=== PATIENT | male | born 1940 | race Caucasian/White ===

== ENCOUNTER 2020-03-15 20:05 | Emergency (ER) | payer OTHER ==
[~2020-03-15] VITALS: Ht 170.2 cm; Wt 84.4 kg
[~2020-03-15 20:05] MED LIST: ASCO500 PO; ASPI325; ASPI325EC PO; CALCIUM PO; GLIM2 PO; LISI20 PO; METF500 PO; MULVITA; OXYC5 PO; Omeprazole20 M1 PO; PAIN RELIEVER500 MG PO; VITAMINES
[2020-03-15 20:31] LABS: BASOPHILS PERCENT AUTO 1 % (0-2); EOSINOPHILS ABSOLUTE AUTO 0.35 K/mm3 (0.00-0.68); EOSINOPHILS PERCENT AUTO 4 % (0-6); Hematocrit 47.9 % (37.0-53.0); Hemoglobin 16.2 g/dL (13.5-17.5); IMMATURE GRAN ABSOLUTE AUTO 0.16 K/mm3 (0.00-0.10); IMMATURE GRAN PERCENT AUTO 2 % (0-1); LYMPHOCYTES PERCENT AUTO 22 % (21-46); MONOCYTES ABSOLUTE AUTO 0.52 K/mm3 (0.16-1.47); MONOCYTES PERCENT AUTO 5 % (4-13); Mean Corpuscular HGB 29.7 pg (26.0-34.0); Mean Corpuscular HGB Conc 33.8 g/dL (31.5-36.5); Mean Corpuscular Volume 88 fL (80-100); Mean Platelet Volume 9.6 fL (9.1-12.4); NEUTROPHILS ABSOLUTE AUTO 6.52 K/mm3 (1.96-9.15); NEUTROPHILS PERCENT AUTO 66 % (41-73); Platelet Count 296 K/mm3 (150-400); RDW Coefficient Variation 13.5 % (11.7-14.2); RDW Standard Deviation 43.6 fL (35.1-46.3); Red Blood Cell Count 5.45 M/mm3 (4.30-5.90); White Blood Cell Count 9.85 K/mm3 (4.00-11.30)
[2020-03-15 20:44] LABS: International Normalized Ratio 0.96; Prothrombin Time Results 10.3 Sec (9.7-11.5)
[2020-03-15 21:11] LABS: Alanine Aminotransfer (ALT/SGP 28 U/L (12-78); Albumin, Blood 3.6 g/dL (3.4-5.0); Albumin/Globulin Ratio 1.1 (0.8-1.8); Alk Phos 77 U/L (50-136); Anion Gap 8 mmol/L (6-16); Aspartate Aminotrans (AST/SGOT 19 U/L (12-37); Bilirubin, Total 0.5 mg/dL (0.1-1.0); Blood Urea Nitrogen 18 mg/dL (8-24); Bun/Creatinine Ratio 19.5 (12.0-20.0); CO2, Blood 25 mmol/L (21-32); Calcium, Blood 8.4 mg/dL (8.5-10.1); Chloride, Blood 108 mmol/L (98-108); Creatinine, Blood 0.92 mg/dL (0.60-1.20); Ethanol (Alcohol), Blood, Med <3 mg/dL; Globulin, Blood 3.4 g/dL (2.2-4.0); Glomerular Filtration Rate >60 (60-); Glucose, Blood 294 mg/dL (70-99); Sodium, Blood 141 mmol/L (136-145)
[2020-03-15 21:47] LABS: Source, Urine Clean Catch
[2020-03-15 21:55] LABS: Bilirubin, Urine Neg (Neg); Blood, Urine 1+ (Neg); Glucose Qualitative, Urine 4+ (Neg); Ketones, Urine 1+ (Neg); Leukocyte Esterase, Urine Neg (Neg); Nitrite, Urine Neg (Neg); Protein, Urine 1+ (Neg); Urobilinogen, Urine NORM (Normal)
[2020-03-15 21:58] LABS: Appearance, Urine Clear (Clear); Color, Urine Yellow (P-Yellow)
[2020-03-15 22:00] LABS: Bacteria Few /hpf; Red Blood Cells, Urine 0-2 /hpf (0-2); Squamous Epithelial Cells Not Seen /hpf (Few)
== END 2020-03-15 23:46 | disposition short-term general hospital (02) ==
LOC: ER 20:05
PROVIDERS: Physician Assistant
DX: I60.9 Nontraumatic subarachnoid hemorrhage, unspecified (principal); Z79.899 Other long term (current) drug therapy; Z79.82 Long term (current) use of aspirin; Z20.828 Contact with and (suspected) exposure to other viral communicable diseases
CPT/HCPCS: 36415; 70450; 80053; 81001; 82947; 85025; 85610; 93005; 93010; 99285-25; G0480; U0002

== ENCOUNTER 2022-10-28 18:58 | Emergency (ER) | payer OTHER ==
[~2022-10-28] VITALS: Ht 172.7 cm; Wt 77.1 kg
[2022-10-28 19:30] LABS: BASOPHILS ABSOLUTE AUTO 0.08 K/mm3 (0.00-0.23); BASOPHILS PERCENT AUTO 1 % (0-2); EOSINOPHILS ABSOLUTE AUTO 0.24 K/mm3 (0.00-0.68); EOSINOPHILS PERCENT AUTO 2 % (0-6); Hematocrit 29.5 % (37.0-53.0); Hemoglobin 9.3 g/dL (13.5-17.5); IMMATURE GRAN PERCENT AUTO 1 % (0-1); LYMPHOCYTES ABSOLUTE AUTO 2.36 K/mm3 (0.84-5.20); LYMPHOCYTES PERCENT AUTO 16 % (21-46); MONOCYTES ABSOLUTE AUTO 1.05 K/mm3 (0.16-1.47); MONOCYTES PERCENT AUTO 7 % (4-13); Mean Corpuscular HGB 23.7 pg (26.0-34.0); Mean Corpuscular HGB Conc 31.5 g/dL (31.5-36.5); Mean Corpuscular Volume 75 fL (80-100); Mean Platelet Volume 9.4 fL (9.1-12.4); NEUTROPHILS ABSOLUTE AUTO 10.58 K/mm3 (1.96-9.15); NEUTROPHILS PERCENT AUTO 73 % (41-73); Platelet Count 422 K/mm3 (150-400); RDW Coefficient Variation 13.8 % (11.7-14.2); RDW Standard Deviation 37.2 fL (35.1-46.3); Red Blood Cell Count 3.92 M/mm3 (4.30-5.90); White Blood Cell Count 14.41 K/mm3 (4.00-11.30)
[2022-10-28 19:53] LABS: Magnesium, Blood 1.7 mg/dL (1.6-2.4)
[2022-10-28 19:54] LABS: Albumin, Blood 3.5 g/dL (3.4-5.0); Albumin/Globulin Ratio 1.1 (0.8-1.8); Bilirubin, Total 0.3 mg/dL (0.1-1.0); Bun/Creatinine Ratio 23.5 (12.0-20.0); Calcium, Blood 8.6 mg/dL (8.5-10.1); Creatinine, Blood 0.81 mg/dL (0.60-1.20); Globulin, Blood 3.1 g/dL (2.2-4.0); Total Protein, Blood 6.6 g/dL (6.4-8.2)
[2022-10-28] MEDS ORDERED: LISI5 PO (20:22)
[2022-10-28] MEDS ORDERED: CEPH500 PO (23:58)
== END 2022-10-29 00:52 | disposition home or self-care (01) ==
LOC: ER 18:58
PROVIDERS: Student in an Organized Health Care Education/Training Program
DX: S68.613A Complete traumatic transphalangeal amputation of left middle finger, initial encounter (principal); S61.215A Laceration without foreign body of left ring finger without damage to nail, initial encounter; S61.411A Laceration without foreign body of right hand, initial encounter; W31.2XXA Contact with powered woodworking and forming machines, initial encounter; Z79.899 Other long term (current) drug therapy; Z79.82 Long term (current) use of aspirin
CPT/HCPCS: 12042; 70450; 72125; 73120; 73130; 80053; 83735; 84484; 85025; 93005; 93010; 96374-59; 96375-59; 99285-25; A9270; J0690; J1885

== ENCOUNTER 2022-11-24 16:29 | Observation (INO) | payer OTHER ==
[~2022-11-24] VITALS: Ht 172.7 cm; Wt 75.4 kg
[~2022-11-24 16:29] MED LIST changes: +CEPH500 PO; +LISI5 PO
[2022-11-24 17:11] LABS: BASOPHILS ABSOLUTE AUTO 0.06 K/mm3 (0.00-0.23); BASOPHILS PERCENT AUTO 1 % (0-2); EOSINOPHILS ABSOLUTE AUTO 0.15 K/mm3 (0.00-0.68); EOSINOPHILS PERCENT AUTO 2 % (0-6); Hematocrit 20.8 % (37.0-53.0); Hemoglobin 6.2 g/dL (13.5-17.5); IMMATURE GRAN ABSOLUTE AUTO 0.09 K/mm3 (0.00-0.10); IMMATURE GRAN PERCENT AUTO 1 % (0-1); LYMPHOCYTES ABSOLUTE AUTO 1.74 K/mm3 (0.84-5.20); LYMPHOCYTES PERCENT AUTO 18 % (21-46); MONOCYTES ABSOLUTE AUTO 0.86 K/mm3 (0.16-1.47); MONOCYTES PERCENT AUTO 9 % (4-13); Mean Corpuscular HGB Conc 29.8 g/dL (31.5-36.5); Mean Corpuscular Volume 77 fL (80-100); Mean Platelet Volume 9.8 fL (9.1-12.4); NEUTROPHILS ABSOLUTE AUTO 6.72 K/mm3 (1.96-9.15); NEUTROPHILS PERCENT AUTO 70 % (41-73); Platelet Count 460 K/mm3 (150-400); RDW Coefficient Variation 16.3 % (11.7-14.2); RDW Standard Deviation 45.2 fL (35.1-46.3); Red Blood Cell Count 2.69 M/mm3 (4.30-5.90); White Blood Cell Count 9.62 K/mm3 (4.00-11.30)
[2022-11-24 17:26] LABS: Albumin, Blood 3.1 g/dL (3.4-5.0); Bilirubin, Total 0.2 mg/dL (0.1-1.0); Bun/Creatinine Ratio 20.1 (12.0-20.0); Calcium, Blood 8.5 mg/dL (8.5-10.1); Creatinine, Blood 0.75 mg/dL (0.60-1.20); Potassium, Blood 4.3 mmol/L (3.5-5.5); Total Protein, Blood 6.1 g/dL (6.4-8.2)
[2022-11-24 21:00] VITALS: BP 117/59
[2022-11-24 21:30] VITALS: BP 112/60
[2022-11-24 22:00] VITALS: BP 107/77
[2022-11-24 22:30] VITALS: BP 126/70
[2022-11-24 23:00] VITALS: BP 97/81
[2022-11-25] VITALS (39 sets, daily range): BP systolic 104–165; BP diastolic 53–88
[2022-11-25 01:30] LABS: BASOPHILS ABSOLUTE AUTO 0.06 K/mm3 (0.00-0.23); BASOPHILS PERCENT AUTO 1 % (0-2); EOSINOPHILS ABSOLUTE AUTO 0.19 K/mm3 (0.00-0.68); EOSINOPHILS PERCENT AUTO 2 % (0-6); Hemoglobin 7.7 g/dL (13.5-17.5); IMMATURE GRAN ABSOLUTE AUTO 0.13 K/mm3 (0.00-0.10); IMMATURE GRAN PERCENT AUTO 1 % (0-1); LYMPHOCYTES ABSOLUTE AUTO 1.42 K/mm3 (0.84-5.20); LYMPHOCYTES PERCENT AUTO 14 % (21-46); MONOCYTES ABSOLUTE AUTO 0.76 K/mm3 (0.16-1.47); MONOCYTES PERCENT AUTO 8 % (4-13); Mean Corpuscular HGB 24.4 pg (26.0-34.0); Mean Corpuscular HGB Conc 30.8 g/dL (31.5-36.5); Mean Corpuscular Volume 79 fL (80-100); Mean Platelet Volume 9.5 fL (9.1-12.4); NEUTROPHILS PERCENT AUTO 74 % (41-73); Platelet Count 391 K/mm3 (150-400); RDW Coefficient Variation 16.6 % (11.7-14.2); RDW Standard Deviation 47.1 fL (35.1-46.3); Red Blood Cell Count 3.15 M/mm3 (4.30-5.90); White Blood Cell Count 9.96 K/mm3 (4.00-11.30)
[2022-11-25 01:51] LABS: Bun/Creatinine Ratio 18.4 (12.0-20.0); Creatinine, Blood 0.81 mg/dL (0.60-1.20); Potassium, Blood 4.3 mmol/L (3.5-5.5)
--- NOTE | 2022-11-25 02:48 | NUR ---
ARRIVAL TO ICU PT ARRIVED TO ICU 16 AT 2235 VIA ED BED AND WAS ABLE TO TRANSFER SELF TO ICU BED WITH MINIMAL ASSISTANCE, MOSTLY JUST CORD MANAGMENT. HE IS A/O X4 AND ABLE TO MAKE HIS NEEDS KNOWN. HE ARRIVED WITH SECOND UNIT OF PRBC INFUSING AT 150ML/HR, INFUSION COMPLETED AT 0015, REPEAT H&H SHOWED IMPROVEMENT AT 7.7/25.0. SPO2 >98% ON RA; WHILE SLEEPING CPAP BEING USED, AUTO SETTINGS, NO O2 BLEED IN. AFEBRILE. HR 70-80'S; WITH EXERTION, HR INCREASED TO 110. BP STABLE; NO C/O BEING DIZZY OR LIGHTHEADED WHEN TRANSFERING. HAS BEEN NPO SINCE 0000. USES URINAL STANDING AT BEDSIDE. NS INFUSING AT 100ML/HR. SEE ADMISSION ASSESSMENT FOR FULL ASSESSMENT.
--- NOTE | 2022-11-25 06:00 | NUR ---
END OF SHIFT SUMMARY NO ACUTE EVENTS SINCE ARRIVAL TO ICU. ONCE PLACED ON CPAP PT WAS ABLE TO SLEEP FOR ABOUT 5 HOURS AND IS NOW AWAKE STATING THAT HE FEELS "VERY GOOD". HE CONT TO BE A/O X4, VERY PLESENT. ON RA WHILE AWAKE; TOLERATED CPAP WHILE SLEEPING. HR 60-70'S; SBP 110-120. HE HAS BEEN NPO SINCE 0000. HE USES URINAL AT BEDSIDE; STAND BY ASSIST FOR LINE MANAGEMENT. NS INFUSING AT 100ML/HR. WILL REPORT TO AM RN WHEN AVAILABLE.
--- NOTE | 2022-11-25 07:30 | NUR ---
ASSUMED CARE OF PATIENT.
[2022-11-25] MEDS ORDERED: FEROSUL325 M1 PO (09:01)
--- NOTE | 2022-11-25 10:54 | NUR ---
Spiritual Care Visit. Pt. is awake and welcomes my visit. 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 Pt. displays evidence of awareness and engagement. Matters of lino and belief are considered during a life review. Prayed with Pt. and Pt. verbalized gratitude for the spiritual care visit. 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
[2022-11-25 12:17] LABS: Percent Saturation 4.2 % (20.0-50.0)
--- NOTE | 2022-11-25 14:48 | NUR ---
Pt resting in bed upon arrival. Pt is A&OX4 and denies pain at this time. Pt's spouse and their carbon cutter at bedside. Offered supportive visit and therapeutic listening. Listened as Pt discusses events leading of to this hospital stay. Listened as Pt and spouse discusses the possibility of mass found being cancer and how they have known several people who have from cancer. Pt and spouse talk about it open and freely. Conversation does not appear to cause any anxiety. Continued therpaeutic listening. Pt scheduled for prcedure this afternoon. Ended visit to allow Pt to rest. Palliative Care will F/U after procedure to discuss code status.
--- NOTE | 2022-11-25 15:33 | NUR ---
PT TO DAY SURGERY FOR EGD
--- NOTE | 2022-11-25 15:52 | NUR ---
PRE-PROCEDURAL NOTE PT A&OX4, BREATHING RA, VSS, AT BEDSIDE. IV TO T AC PATENT AND RUNNING AT TKO. Patient confirms NPO status and agrees with scheduled PROCEDURE. Pre-Op teaching done. Pt verbalizes understanding.
--- NOTE | 2022-11-25 16:00 | NUR ---
11/25/22 1600 Faustina Aguirre History, Chart, Medications and Allergies reviewed before start of procedure. PATIENT CONFIRMS NPO STATUS AND AGREES WITH SCHEDULED PROCEDURE. 3-LEAD EKG REVIEWED WITH PHYSICIAN PRIOR TO START OF PROCEDURE. MONITOR INTACT WITH CONTINUOUS PULSE OXIMETRY, CONTINUOUS END TITAL CO2, AND INTERMITTENT BLOOD PRESSURE. O2 VIA N/C INTACT THROUGHOUT SEDATION/PROCEDURE. PATIENT DETERMINED TO BE ASA APPROPRIATE FOR PROPOFOL SEDATION PRIOR TO START OF PROCEDURE BY .
--- NOTE | 2022-11-25 16:30 | NUR ---
END OF SHIFT/ TRANSFER SUMMARY: NEURO: PATIENT IS A&OX4 AND TILLMAN. RESP: PATIENTS LUNG SOUNDS WERE CLEAR IN ALL QUADRANTS UPON AUSCULATION. CARDIO: GALLOP AUSCULTATED. GI: PATIENT REMAINED NPO DURING WHOLE SHIFT IN PREPERATION FOR SCOPE. SKIN: PATIENT HAS A ABRASION TO HIS THIRD AND FOURTH FINGER ON HIS LEFT HAND. IV'S: 20G IV IN LEFT AND RIGHT AC. BOTH LINES FULSHING AND PATENT SHIFT [place]: PATIENT WENT TO DAY SURGERY FOR A EGD. PATIENT WAS THEN TRANSFERED TO MEDICAL FLOOR AFTER.
--- NOTE | 2022-11-25 19:45 | NUR ---
I HAVE REVIEWED AND AGREE WITH COMPLIANCE DIRECTOR DOCUMENTATION 11/25/2022
--- NOTE | 2022-11-25 21:50 | NUR ---
CALLED REGARDING PTS ST DEPRESSION INCREASING WELL EKG CHANGES COMPARED TO YESTERDAYS EKG. PT DENIES ANY CHEST PAIN/SOB. PER CONTINUE TO MONITOR PT. NO NEW ORDERS AT THIS TIME.
[2022-11-26 03:55] VITALS: BP 127/75
--- NOTE | 2022-11-26 04:09 | NUR ---
SHIFT SUMMARY; PT HAS BEEN SLEEPING IN BED FOR THE MAJORITY OF THE NIGHT. THE PT IS AXO X4 AND INDEPENDENT IN THE ROOM. THE PT HAS HIS HOME CPAP ON. TELE IS IN PLACE, NSR IN THE 60/70'S WITH ST DEPRESSION. EKG DONE, AWARE OF EKG FINDINGS AND CHANGES IN COMPARISON TO PREVIOUS EKG. THE PT DENIES ANY PAIN CHEST PAIN/PRESSURE, SOB OR N/V. CURRENTLY THE PT IS SLEEPING IN BED WITH THE BED IN THE LOWEST POSITION AND THE CALL LIGHT AT BEDSIDE.
[2022-11-26 05:53] LABS: Hematocrit 27.6 % (37.0-53.0); Hemoglobin 8.5 g/dL (13.5-17.5); Mean Corpuscular HGB 24.4 pg (26.0-34.0); Mean Corpuscular HGB Conc 30.8 g/dL (31.5-36.5); Mean Corpuscular Volume 79 fL (80-100); Mean Platelet Volume 9.8 fL (9.1-12.4); Platelet Count 416 K/mm3 (150-400); RDW Coefficient Variation 17.1 % (11.7-14.2); RDW Standard Deviation 47.9 fL (35.1-46.3); Red Blood Cell Count 3.48 M/mm3 (4.30-5.90); White Blood Cell Count 10.95 K/mm3 (4.00-11.30)
[2022-11-26 06:24] LABS: Albumin, Blood 2.8 g/dL (3.4-5.0); Bilirubin, Total 0.4 mg/dL (0.1-1.0); Bun/Creatinine Ratio 15.8 (12.0-20.0); Calcium, Blood 8.2 mg/dL (8.5-10.1); Creatinine, Blood 0.76 mg/dL (0.60-1.20); Globulin, Blood 2.8 g/dL (2.2-4.0); Potassium, Blood 4.1 mmol/L (3.5-5.5); Total Protein, Blood 5.6 g/dL (6.4-8.2)
[2022-11-26 07:17] VITALS: BP 115/66
[2022-11-26] MEDS ORDERED: PANT40 PO (12:35)
--- NOTE | 2022-11-26 13:46 | NUR ---
DISCHARGE SUMMARY PATIENT IS ALERT AND ORIENTED. PATIENT HAS HAD NO ACUTE EVENTS THIS SHIFT. IRON INFUSED THIS SHIFT. PATIENT HAS NOT COMPLAINED OF PAIN, NAUSEA, SOB OR VOMITTING THIS SHIFT. VITAL SIGNS REVIEWED. PATIENT IS BEING DISCHARGED HOME WITH DRIVING PATIENT HOME.
[2022-11-30 12:36] LABS: Performing Lab SYMBIODX; Test Name HER2 FISH
== END 2022-11-26 13:26 | disposition home or self-care (01) ==
LOC: ER 16:29 → ICUW 16:30 → MEDS 11-25 16:54
PROVIDERS: Internal Medicine; Pathology Clinical Pathology/Laboratory Medicine; Student in an Organized Health Care Education/Training Program; ADMIT Student in an Organized Health Care Education/Training Program
DX: C15.5 Malignant neoplasm of lower third of esophagus (principal); K31.89 Other diseases of stomach and duodenum; D50.9 Iron deficiency anemia, unspecified; K92.2 Gastrointestinal hemorrhage, unspecified; K21.9 Gastro-esophageal reflux disease without esophagitis; I10 Essential (primary) hypertension; E11.9 Type 2 diabetes mellitus without complications; Z79.84 Long term (current) use of oral hypoglycemic drugs; Z79.899 Other long term (current) drug therapy
CPT/HCPCS: 36415; 36430; 74177; 80048; 80053; 82272; 82728; 82947; 83540; 83550; 85025; 85027; 86850; 86900; 86901; 86923; 88305; 88360; 88374; 93005; 93010; 94660; 94762; 96361; 96365; 96375; 96376; 99285-25; A9270; C9113; G0378; J2704; J2916; J7030; J7120; P9016; Q9967

== ENCOUNTER 2024-01-13 13:26 | Emergency (ER) | payer OTHER ==
[~2024-01-13] VITALS: Ht 172.7 cm; Wt 64.4 kg
[~2024-01-13 13:26] MED LIST changes: +FEROSUL325 M1 PO; +OMEP20ER; +PANT40 PO
[2024-01-13 13:37] VITALS: BP 116/93
[2024-01-13] MEDS ORDERED: Trimethoprim/Sulfamethoxazole DS Tab PO ONE (16:35)
[2024-01-13] MEDS ORDERED: BACTRIM DS TAB1 EAC1 PO ×2 (17:22→17:56)
== END 2024-01-13 18:01 | disposition home or self-care (01) ==
LOC: ER 13:26
DX: K94.23 Gastrostomy malfunction (principal); K21.9 Gastro-esophageal reflux disease without esophagitis; I10 Essential (primary) hypertension; E11.9 Type 2 diabetes mellitus without complications; Z79.899 Other long term (current) drug therapy
CPT/HCPCS: 43762; 49465; 99282-25; A9270; Q9963

== ENCOUNTER 2024-02-02 08:04 | Day surgery (SDC) | payer OTHER ==
[~2024-02-02] VITALS: Ht 172.7 cm; Wt 63.1 kg
[~2024-02-02 08:04] MED LIST changes: +BACTRIM DS TAB1 EAC1 PO; +Lactated Ringer's 1,000 ML IV SCH
[2024-02-02] MEDS ORDERED: Vitamin C100 M1 PO (08:28)
[2024-02-02] MEDS ORDERED: Cardura1 MG PO (08:29)
[2024-02-02] MEDS ORDERED: Vitamin B-12100 MCG PO (08:29)
[2024-02-02 08:38] VITALS: BP 112/87
[2024-02-02] MEDS ORDERED: propofoL 40 ML IV ONE (09:07)
--- NOTE | 2024-02-02 09:15 | NUR ---
02/02/24 0915 Cheryl Irwin History, Chart, Medications and Allergies reviewed before start of procedure.MONITOR INTACT WITH CONTINUOUS PULSE OXIMETRY, CONTINUOUS END TITAL CO2, AND INTERMITTENT BLOOD PRESSURE.3-LEAD EKG REVIEWED WITH PHYSICIAN PRIOR TO START OF PROCEDURE.O2 VIA POM INTACT THROUGHOUT SEDATION/PROCEDURE.Bite Block Placed. Uwi, PARTS COUNTER CLERK providing MAC-see anesthesia record.
[2024-02-02 09:37] VITALS: BP 107/67
[2024-02-02 09:55] VITALS: BP 103/78
--- NOTE | 2024-02-02 10:10 | NUR ---
Discharge instructions reviewed with patient. Patient verbalizes understanding. Copy given to patient to take home. Patient States Post-Procedure ride home has been arranged. Discharged via wheelchair to private car for ride home.
== END 2024-02-02 10:07 | disposition home or self-care (01) ==
LOC: ORSCMMR 08:04 → ORD 08:04 → ORSCMMR 08:07 → ORD 09:15
PROVIDERS: Internal Medicine Gastroenterology
PROC: 0DJ08ZZ Inspection of Upper Intestinal Tract, Via Natural or Artificial Opening Endoscopic (ICD-10-PCS; principal; 2024-02-02 09:15)
DX: R13.12 Dysphagia, oropharyngeal phase (principal); Z85.01 Personal history of malignant neoplasm of esophagus; K22.2 Esophageal obstruction; Z93.1 Gastrostomy status; G47.30 Sleep apnea, unspecified; E78.5 Hyperlipidemia, unspecified; I10 Essential (primary) hypertension; E11.9 Type 2 diabetes mellitus without complications; G47.33 Obstructive sleep apnea (adult) (pediatric); Z79.899 Other long term (current) drug therapy
CPT/HCPCS: 82947; C1726; J2704

== ENCOUNTER 2024-02-23 10:43 | Day surgery (SDC) | payer OTHER ==
[~2024-02-23] VITALS: Ht 170.2 cm; Wt 64.9 kg
[~2024-02-23 10:43] MED LIST changes: +Cardura1 MG PO; +Lactated Ringer's 1,000 ML IV ONE; -Lactated Ringer's 1,000 ML IV SCH; +Vitamin B-12100 MCG PO; +Vitamin C100 M1 PO
[2024-02-23] MEDS ORDERED: Lactated Ringer's 1,000 ML IV ONE (12:10)
[2024-02-23] MEDS ORDERED: propofoL 50 ML IV ONE (13:10)
[2024-02-23 14:49] VITALS: BP 112/68
--- NOTE | 2024-02-23 14:58 | NUR ---
02/23/24 1458 Chantal Manning 1335: PER DR ROCHE, ONCE PATIENT IS ALERT DO A SWALLOWING TRIAL OF LUKEWARM WATER. 1338: PATIENT'S MOUTH SUCTIONED WHEN FIRST IN RECOVERY USING YANKEUR. OUTPUT IS CLEAR AND THIN. 1350: PATIENT TITRATED TO ROOM AIR, SITTING UPRIGHT IN BED, LUNGS ARE CLEAR, TALKING WITH SPOUSE AND STAFF. 1355: PATIENT COMPLETED TRIAL OF SIPS OF LUKEWARM WATER WITH A STRAW, ACCORDING TO PATIENT HIS SWALLOWING "FEELS BETTER". RN INSTRUCTED PATIENT TO GO SLOW AND TAKE SMALL SIPS. PATIENT ABLE TO COMPLETE MULTIPLE SMALL SIPS OF WATER AND THEN STATED HE WAS DONE. HE DID CONTINUE TO SPIT OUT HIS SPIT LIKE HE HAD BEFORE PROCEDURE. 1407: DR ROCHE NOTIFIED THAT PATIENT COMPLETED SWALLOWING TRIAL OF LUKEWARM WATER WITHOUT ISSUE. DR ROCHE IN TO DISCUSS CASE WITH PATIENT. PER DR ROCHE, NO FURTHER ORDERS, PATIENT IS OKAY TO DISCHARGE HOME AND TRY A MILKSHAKE.
== END 2024-02-23 14:25 | disposition home or self-care (01) ==
LOC: ORSCSDS 10:43
PROVIDERS: Internal Medicine Gastroenterology
PROC: 0D758ZZ Dilation of Esophagus, Via Natural or Artificial Opening Endoscopic (ICD-10-PCS; principal; 2024-02-23 12:00)
DX: R13.12 Dysphagia, oropharyngeal phase (principal); K22.2 Esophageal obstruction; Z85.01 Personal history of malignant neoplasm of esophagus; G47.33 Obstructive sleep apnea (adult) (pediatric); E11.9 Type 2 diabetes mellitus without complications; I10 Essential (primary) hypertension; Z79.899 Other long term (current) drug therapy
CPT/HCPCS: 82947; C1726; J2704; J7120

== ENCOUNTER 2024-04-19 07:15 | Day surgery (SDC) | payer OTHER ==
[~2024-04-19] VITALS: Ht 165.1 cm; Wt 65.7 kg
[2024-04-19] VITALS (8 sets, daily range): BP systolic 95–126; BP diastolic 64–91
[~2024-04-19 07:15] MED LIST changes: -Lactated Ringer's 1,000 ML IV ONE; +Lactated Ringer's 1,000 ML IV SCH
[2024-04-19] MEDS ORDERED: propofoL 20 ML IV ONE (08:43)
--- NOTE | 2024-04-19 08:45 | NUR ---
04/19/24 0845 Digna Thurman History, Chart, Medications and Allergies reviewed before start of procedure. MONITOR INTACT WITH CONTINUOUS PULSE OXIMETRY, CONTINUOUS END TITAL CO2, AND INTERMITTENT BLOOD PRESSURE. Bite Block Placed. PATIENT DETERMINED TO BE ASA APPROPRIATE FOR PROPOFOL SEDATION PRIOR TO START OF PROCEDURE BY DR. ROCHE.
--- NOTE | 2024-04-19 08:57 | NUR ---
Ambulatory in Day Surgery History, Chart, Medications and Allergies reviewed before start of procedure. Pre-Op teaching done. Pt verbalizes understanding. Patient States Post-Procedure ride home has been arranged.
--- NOTE | 2024-04-19 09:37 | NUR ---
DISCHARGE NOTE Patient up to Ambulate independently. Gait steady. Discharge instructions reviewed with patient. Patient verbalizes understanding. Copy given to patient to take home. Lungs clear T/O to Auscultation. Discharged via wheelchair to private car for ride home. Patient swallowing water w/o difficulty. Reviewed DC instructions w/ spouse as well.
== END 2024-04-19 09:39 | disposition home or self-care (01) ==
LOC: ORSCMMR 07:15 → ORD 08:45 → ORSCMMR 09:39
PROVIDERS: Internal Medicine Gastroenterology
PROC: 0D758ZZ Dilation of Esophagus, Via Natural or Artificial Opening Endoscopic (ICD-10-PCS; principal; 2024-04-19 08:45)
DX: R13.10 Dysphagia, unspecified (principal); Z85.01 Personal history of malignant neoplasm of esophagus; E11.9 Type 2 diabetes mellitus without complications; G47.33 Obstructive sleep apnea (adult) (pediatric); Z79.899 Other long term (current) drug therapy
CPT/HCPCS: 82947; C1726; J2704; J7120

== ENCOUNTER 2024-04-30 07:44 | Day surgery (SDC) | payer OTHER ==
[~2024-04-30] VITALS: Ht 170.2 cm; Wt 65.6 kg
[~2024-04-30 07:44] MED LIST changes: +Lactated Ringer's 1,000 ML IV ONE; -Lactated Ringer's 1,000 ML IV SCH; +propofoL 50 ML IV ONE
[2024-04-30] MEDS ORDERED: Lactated Ringer's 1,000 ML IV ONE (08:10)
--- NOTE | 2024-04-30 08:24 | NUR ---
04/30/24 0824 Jorge L Irwin CALL LIGHT WITHIN REACH. FAMILY AT BEDSIDE.
[2024-04-30 10:09] VITALS: BP 110/63
--- NOTE | 2024-04-30 10:24 | NUR ---
04/30/24 Donna Hayes PT. DENIES ANY TROUBLE SWALLOWING OR SORE THROAT. PT. STATES "I CAN SWALLOW GOOD."
== END 2024-04-30 09:49 | disposition home or self-care (01) ==
LOC: ORSCSDS 07:44
PROVIDERS: Specialist
PROC: 0D758ZZ Dilation of Esophagus, Via Natural or Artificial Opening Endoscopic (ICD-10-PCS; principal; 2024-04-30 09:00)
DX: R13.10 Dysphagia, unspecified (principal); G47.33 Obstructive sleep apnea (adult) (pediatric); Z85.01 Personal history of malignant neoplasm of esophagus; E11.9 Type 2 diabetes mellitus without complications; I10 Essential (primary) hypertension
CPT/HCPCS: 82947; C1726; J2704; J7120

== ENCOUNTER 2024-05-09 07:39 | Day surgery (SDC) | payer OTHER ==
[~2024-05-09] VITALS: Ht 170.2 cm; Wt 65.7 kg
[~2024-05-09 07:39] MED LIST changes: -propofoL 50 ML IV ONE
[2024-05-09] MEDS ORDERED: Vitamin D1000 UNI1 PO (08:13)
[2024-05-09] MEDS ORDERED: Lactated Ringer's 1,000 ML IV ONE (08:42)
[2024-05-09] MEDS ORDERED: Lidocaine HCl 4% 5 ML SDA ONE (08:45)
[2024-05-09] MEDS ORDERED: Glycopyrrolate 0.2 MG/ML 1MLVIAL ONE (08:45)
[2024-05-09] MEDS ORDERED: propofoL 50 ML IV ONE (08:57)
--- NOTE | 2024-05-09 08:59 | NUR ---
05/09/24 0859 Donna Toro PT. DENIES ANY PAIN
[2024-05-09 10:02] VITALS: BP 99/68
== END 2024-05-09 10:05 | disposition home or self-care (01) ==
LOC: ORSCSDS 07:39
PROVIDERS: Specialist
PROC: 0DJ08ZZ Inspection of Upper Intestinal Tract, Via Natural or Artificial Opening Endoscopic (ICD-10-PCS; principal; 2024-05-09 09:00)
DX: Q39.3 Congenital stenosis and stricture of esophagus (principal); Z93.1 Gastrostomy status; G47.33 Obstructive sleep apnea (adult) (pediatric); R63.4 Abnormal weight loss; E11.9 Type 2 diabetes mellitus without complications; Z85.01 Personal history of malignant neoplasm of esophagus; R13.12 Dysphagia, oropharyngeal phase; Z79.899 Other long term (current) drug therapy
CPT/HCPCS: 82947; C1726; J2001; J2003; J2704; J7120

== ENCOUNTER 2024-05-28 11:08 | Day surgery (SDC) | payer OTHER ==
[~2024-05-28] VITALS: Ht 170.2 cm; Wt 65.5 kg
[~2024-05-28 11:08] MED LIST changes: +Vitamin D1000 UNI1 PO
[2024-05-28] MEDS ORDERED: Lactated Ringer's 1,000 ML IV ONE ×2 (12:08→13:12)
[2024-05-28] MEDS ORDERED: propofoL 50 ML IV ONE (12:23)
[2024-05-28] MEDS ORDERED: Glycopyrrolate 0.2 MG/ML 1MLVIAL ONE (12:24)
[2024-05-28 13:16] VITALS: BP 107/72
== END 2024-05-28 13:29 | disposition home or self-care (01) ==
LOC: ORSCSDS 11:08
PROVIDERS: Specialist
PROC: 0D758ZZ Dilation of Esophagus, Via Natural or Artificial Opening Endoscopic (ICD-10-PCS; principal; 2024-05-28 13:00)
DX: Q39.3 Congenital stenosis and stricture of esophagus (principal); Z85.01 Personal history of malignant neoplasm of esophagus; G47.33 Obstructive sleep apnea (adult) (pediatric); E11.9 Type 2 diabetes mellitus without complications; Z79.899 Other long term (current) drug therapy
CPT/HCPCS: 82947; C1726; J2704; J7120

== ENCOUNTER 2024-07-27 16:47 | Emergency (ER) | payer OTHER ==
[~2024-07-27] VITALS: Ht 172.7 cm; Wt 65.8 kg
[~2024-07-27 16:47] MED LIST changes: -Lactated Ringer's 1,000 ML IV ONE
[2024-07-27 17:07] VITALS: BP 126/78
== END 2024-07-27 22:56 | disposition home or self-care (01) ==
LOC: ER 16:47
DX: K94.23 Gastrostomy malfunction (principal); E11.9 Type 2 diabetes mellitus without complications; I10 Essential (primary) hypertension; K21.9 Gastro-esophageal reflux disease without esophagitis; N40.0 Benign prostatic hyperplasia without lower urinary tract symptoms; Z85.01 Personal history of malignant neoplasm of esophagus; Z59.89 Other problems related to housing and economic circumstances; Z79.899 Other long term (current) drug therapy
CPT/HCPCS: 43762; 99282-25

== ENCOUNTER 2025-07-09 00:56 | Inpatient (IN) | payer OTHER, MEDICARE ==
[~2025-07-09] VITALS: Ht 170.2 cm; Wt 62.3 kg
[2025-07-09] MEDS ORDERED: Ipratropium/Albuterol SulF 2.5-0.5MG/3 ML Amp INH ONE (01:00)
[2025-07-09 01:19] LABS: BASOPHILS ABSOLUTE AUTO 0.04 K/mm3 (0.00-0.23); BASOPHILS PERCENT AUTO 1 % (0-2); EOSINOPHILS ABSOLUTE AUTO 0.13 K/mm3 (0.00-0.68); EOSINOPHILS PERCENT AUTO 2 % (0-6); Hematocrit 45.6 % (37.0-53.0); Hemoglobin 15.5 g/dL (13.5-17.5); IMMATURE GRAN ABSOLUTE AUTO 0.08 K/mm3 (0.00-0.10); IMMATURE GRAN PERCENT AUTO 1 % (0-1); LYMPHOCYTES ABSOLUTE AUTO 0.99 K/mm3 (0.84-5.20); LYMPHOCYTES PERCENT AUTO 12 % (21-46); MONOCYTES ABSOLUTE AUTO 0.71 K/mm3 (0.16-1.47); MONOCYTES PERCENT AUTO 9 % (4-13); Mean Corpuscular HGB Conc 34.0 g/dL (31.5-36.5); Mean Corpuscular Volume 86 fL (80-100); NEUTROPHILS ABSOLUTE AUTO 6.21 K/mm3 (1.96-9.15); NEUTROPHILS PERCENT AUTO 76 % (41-73); NRBC ABSOLUTE 0.00 K/mm3 (0.00-0.02); NRBC Auto 0.0 /100 WBC (0.0-0.2); Platelet Count 260 K/mm3 (150-400); RDW Coefficient Variation 14.1 % (11.7-14.2); RDW Standard Deviation 45.0 fL (35.1-46.3)
[2025-07-09 02:00] LABS: Alanine Aminotransfer (ALT/SGP 32.0 U/L (12-78); Albumin, Blood 3.2 g/dL (3.4-5.0); Albumin/Globulin Ratio 0.8 (0.8-1.8); Anion Gap 10.0 mmol/L (3-11); Aspartate Aminotrans (AST/SGOT 24.0 U/L (12-37); Bilirubin, Total 0.8 mg/dL (0.1-1.0); Blood Urea Nitrogen 15.0 mg/dL (8-24); CO2, Blood 26.0 mmol/L (21-32); Calcium, Blood 8.4 mg/dL (8.5-10.1); Chloride, Blood 93.0 mmol/L (98-108); Creatinine, Blood 0.57 mg/dL (0.60-1.20); Globulin, Blood 3.8 g/dL (2.2-4.0); Glucose, Blood 209.0 mg/dL (70-99); Magnesium, Blood 2.0 mg/dL (1.6-2.4); Potassium, Blood 4.0 mmol/L (3.5-5.5); Sodium, Blood 125.0 mmol/L (136-145); Total Protein, Blood 7.0 g/dL (6.4-8.2)
[2025-07-09] MEDS ORDERED: CefTRIAXone Sodium 1,000 MG in NS 100 ML IV ONE ×2 (02:10→05:55)
[2025-07-09] MEDS ORDERED: FLU VACC TS2025(65UP)/MF59C/PF 45 MCG/0.5 ML SYRINGE IM SCH (03:20)
[2025-07-09 05:18] VITALS: BP 110/75
--- NOTE | 2025-07-09 06:56 | NUR ---
SHIFT SUMMARY PT A/O X 4, SPEAKS IN COMPLETE SENTENCES AND IS ABLE TO MAKE NEEDS KNOWN. PT IS HARD OF HEARING. SATS >92% ON 1-2L NC. NSR 70-80s, DENIES CHEST PAIN OR PRESURE. PATIENT HX OF ESOPHAGEAL CANCER, G TUBE PLACED APPROXIMATELY 2 YEARS AGO. MANAGES IT AT HOME WITH HELP OF . PATIENT HAS BLANCHABLE RED SPOT TO COCCYX. BLE DRY, FLAKING SKIN w HX OF PSORIASIS. NO ACUTE EVENTS SINCE ADMITTED. PATIENT RESTING COMFORTABLY IN ROOM. BED LOCKED IN LOWEST POSITION, CALL LIGHT WITHIN REACH.
[2025-07-09 07:33] VITALS: BP 127/71
[2025-07-09] MEDS ORDERED: Enoxaparin 40 MG/0.4 ML SYR SC SCH (09:00)
[2025-07-09] MEDS ORDERED: Lactobacil 2-S.Thermo-Bifido 1 1 Cap PO SCH (09:00)
[2025-07-09 09:23] LABS: BASOPHILS ABSOLUTE AUTO 0.03 K/mm3 (0.00-0.23); BASOPHILS PERCENT AUTO 0 % (0-2); EOSINOPHILS ABSOLUTE AUTO 0.06 K/mm3 (0.00-0.68); EOSINOPHILS PERCENT AUTO 1 % (0-6); Hematocrit 46.2 % (37.0-53.0); Hemoglobin 15.6 g/dL (13.5-17.5); IMMATURE GRAN ABSOLUTE AUTO 0.07 K/mm3 (0.00-0.10); IMMATURE GRAN PERCENT AUTO 1 % (0-1); LYMPHOCYTES ABSOLUTE AUTO 0.47 K/mm3 (0.84-5.20); LYMPHOCYTES PERCENT AUTO 4 % (21-46); MONOCYTES ABSOLUTE AUTO 0.74 K/mm3 (0.16-1.47); MONOCYTES PERCENT AUTO 7 % (4-13); Mean Corpuscular HGB Conc 33.8 g/dL (31.5-36.5); Mean Corpuscular Volume 87 fL (80-100); NEUTROPHILS ABSOLUTE AUTO 9.71 K/mm3 (1.96-9.15); NEUTROPHILS PERCENT AUTO 88 % (41-73); NRBC ABSOLUTE 0.00 K/mm3 (0.00-0.02); NRBC Auto 0.0 /100 WBC (0.0-0.2); Platelet Count 291 K/mm3 (150-400); RDW Coefficient Variation 14.2 % (11.7-14.2); RDW Standard Deviation 45.3 fL (35.1-46.3)
[2025-07-09 09:48] LABS: Alanine Aminotransfer (ALT/SGP 31.0 U/L (12-78); Albumin, Blood 3.1 g/dL (3.4-5.0); Albumin/Globulin Ratio 0.8 (0.8-1.8); Anion Gap 10.0 mmol/L (3-11); Aspartate Aminotrans (AST/SGOT 21.0 U/L (12-37); Bilirubin, Total 0.7 mg/dL (0.1-1.0); Blood Urea Nitrogen 14.0 mg/dL (8-24); CO2, Blood 26.0 mmol/L (21-32); Calcium, Blood 8.4 mg/dL (8.5-10.1); Chloride, Blood 95.0 mmol/L (98-108); Creatinine, Blood 0.52 mg/dL (0.60-1.20); Globulin, Blood 4.1 g/dL (2.2-4.0); Glucose, Blood 141.0 mg/dL (70-99); Magnesium, Blood 2.1 mg/dL (1.6-2.4); Potassium, Blood 4.1 mmol/L (3.5-5.5); Sodium, Blood 127.0 mmol/L (136-145); Total Protein, Blood 7.2 g/dL (6.4-8.2)
[2025-07-09 11:50] VITALS: BP 101/64
[2025-07-09] MEDS ORDERED: Magnesium Hydroxide Conc 10 ML UDC PT PRN (12:00)
[2025-07-09] MEDS ORDERED: Docusate Sodium Liquid 100 MG UDC PT PRN (12:00)
[2025-07-09 15:27] VITALS: BP 110/75
[2025-07-09 16:16] LABS: Influenza A, PCR NEGATIVE (NEGATIVE); Influenza B, PCR NEGATIVE (NEGATIVE); Resp Syncytial Virus, PCR NEGATIVE (NEGATIVE); SARS-Cov-2 (COVID-19) PCR, MMC NEGATIVE (NEGATIVE)
[2025-07-09 18:19] LABS: Anti-Xa UFH, PHA Monitoring 0.19 IU/mL; Prothrombin Time Results 11.3 Sec (9.7-11.5)
--- NOTE | 2025-07-09 18:31 | NUR ---
SHIFT SUMMARY: PT HAS BEEN A&Ox4, COOPERATIVE W/CARE, ABLE TO MAKE NEEDS KNOWN, BLACKFEET W/HEARING AIDES AT HOME, SBA WHEN OOB. PT REPORTS IMPROVED SOB SINCE ARRIVAL TO ER, MILD DYSPNEA W/ACTIVITY, O2 SATS MAINTAINED >93% ON 1 L/MIN. PT DENIES CHEST PAIN/PRESSURE, SR ON MONITOR, RATE MOSTLY 60s-70s. PT HAS HX OF ESOPHAGEAL CANCER, DIFFICULTY SWALLOWING, SPITS HIS SECRETIONS OUT INTO A CUP AT BASELINE, G TUBE PLACED APPROX 2 YRS AGO. TF HAS BEEN INITIATED PER DIETARY ORDERS. CT PE STUDY PERFORMED THIS AFTERNOON, DR RABAGO TO BEDSIDE TO DISCUSS RESULTS, IMAGING AT BEDSIDE FOR US OF BLE TO R/OUT DVT. CALL LIGHT IN REACH.
[2025-07-09] MEDS ORDERED: Heparin Sodium,Porcine/0.5 NS 500 ML IV SCH (18:35)
[2025-07-09] MEDS ORDERED: Heparin Sodium 5000 Units/ML 1ML MDV IV ONE (18:35)
--- NOTE | 2025-07-09 19:05 | NUR ---
ASSUMPTION OF CARE: THIS RN TO ASSUME CARE OF PT. PT RESTING IN BED WITH NO COMPLAINTS AT THIS TIME. FAMILY AT BEDSIDE. HEPARIN GTT STARTED WITH DAY SHIFT RN. TUBE FEEDING INFUSING AT 40ML/HR. DENIES ANY NEEDS AT THIS TIME. CALL LIGHT IN REACH.
[2025-07-09 20:39] VITALS: BP 103/64
[2025-07-10] VITALS (7 sets, daily range): BP systolic 106–118; BP diastolic 63–79
[2025-07-10 02:08] LABS: BASOPHILS ABSOLUTE AUTO 0.04 K/mm3 (0.00-0.23); BASOPHILS PERCENT AUTO 1 % (0-2); EOSINOPHILS ABSOLUTE AUTO 0.24 K/mm3 (0.00-0.68); EOSINOPHILS PERCENT AUTO 3 % (0-6); Hematocrit 39.9 % (37.0-53.0); Hemoglobin 13.5 g/dL (13.5-17.5); IMMATURE GRAN ABSOLUTE AUTO 0.06 K/mm3 (0.00-0.10); IMMATURE GRAN PERCENT AUTO 1 % (0-1); LYMPHOCYTES ABSOLUTE AUTO 0.62 K/mm3 (0.84-5.20); LYMPHOCYTES PERCENT AUTO 8 % (21-46); MONOCYTES ABSOLUTE AUTO 0.75 K/mm3 (0.16-1.47); MONOCYTES PERCENT AUTO 10 % (4-13); Mean Corpuscular HGB Conc 33.8 g/dL (31.5-36.5); Mean Corpuscular Volume 87 fL (80-100); NEUTROPHILS ABSOLUTE AUTO 5.72 K/mm3 (1.96-9.15); NEUTROPHILS PERCENT AUTO 77 % (41-73); NRBC ABSOLUTE 0.00 K/mm3 (0.00-0.02); NRBC Auto 0.0 /100 WBC (0.0-0.2); Platelet Count 260 K/mm3 (150-400); RDW Coefficient Variation 14.3 % (11.7-14.2); RDW Standard Deviation 45.2 fL (35.1-46.3)
[2025-07-10 02:19] LABS: Anion Gap 9.0 mmol/L (3-11); Blood Urea Nitrogen 12.0 mg/dL (8-24); CO2, Blood 27.0 mmol/L (21-32); Calcium, Blood 8.0 mg/dL (8.5-10.1); Chloride, Blood 100.0 mmol/L (98-108); Creatinine, Blood 0.52 mg/dL (0.60-1.20); Glucose, Blood 128.0 mg/dL (70-99); Potassium, Blood 4.5 mmol/L (3.5-5.5); Sodium, Blood 131.0 mmol/L (136-145)
[2025-07-10] MEDS ORDERED: Dose Adjust by Pharmacy XX STA ×2 (02:39→10:58)
--- NOTE | 2025-07-10 06:08 | NUR ---
SHIFT SUMMARY: PT A&OX4. FOLLOWS COMMANDS AND MAKES NEEDS KNOWN TO STAFF. PT HAS BEEN SLEEPING MOST OF THE SHIFT AND HAS NOT HAD ANY NEEDS OR COMPLAINTS. SINUS ON THE MONITOR. VSS. MAP >65. HEPARIN GTT INFUSING. TUBE FEEDING INFUSING AT 70ML/HR WHICH IS GOAL WITH A 30ML FLUSH EVERY 4 HOURS. NO SIGNIFICANT EVENTS HAVE HAPPENED DURING THIS SHIFT. WILL CONTINUE TO CARE FOR PT TILL END OF SHIFT.
--- NOTE | 2025-07-10 07:36 | NUR ---
AM NOTE PT ALERT, ORINETED X4; [place]; CALM AND COOPERATIVE WTIH CARE. PT UP TO BATHROOM WIHT 1 PERSON ASSIST TO MANAGE LINES. UP IN CHAIR. PT DENIES PAIN, CHEST PAIN/PRESSURE, SOB, NAUSEA, DIZZINESS AND NUMB/TINGLING. TELE SINUS BBB 70'S, BP WNL, NO EDEMA NOTED. SPO2 >90% ON 1L O2 VIA NC, TITRATED TO RA, LS FINE CRACKLES TO LOWER LOBES. ABD LEFT FIRM, NONTNEDER HYPOATIVE BT. BM THIS AM. G TUBE IN PLACE WITH TUBE FEEDING AT GOAL. HEPARIN GTT, VERIFIFED AT SHIFT CHANGE. OTHER VSS. CALL LIGHT WITHIN REACH. SPOUSE AT BEDSIDE.
[2025-07-10] MEDS ORDERED: CefTRIAXone Sodium 1,000 MG in NS 100 ML IV SCH (09:00)
--- NOTE | 2025-07-10 18:06 | NUR ---
SHIFT SUMMARY VSS. NO ACUTE CHANGES DURING SHIFT. PT CONTINUES ON TUBE FEEDING PER ORDERS. UP IN CHAIR. DRESSING CHANGED TO PEG TUBE SITE. HEPARIN INFUSING PER ORDERS. CALL LIGHT WITHIN REACH.
--- NOTE | 2025-07-10 22:38 | NUR ---
ASSUMED CARE OF PATIENT AT 1900. PATIENTS AT BEDSIDE. PATIENT A/O X 4, ANSWERS QUESTIONS APPROPRIATELY AND IS ABLE TO MAKE NEEDS KNOWN. SINUS RHYTHM BBB, 70s. DENIES CHEST PAIN OR PRESSURE. SATS >92 % ON ROOM AIR. ALL OTHER VSS. PATIENT NPO AT BASELINE, HX OF ESOPHAGEAL CANCER, USES SUCTION TO CLEAR SECRETIONS. J TUBE WITH FEED RUNNING AT GOAL OF 70ML/HR. HEPARIN INFUSING AT 08 U/KG/HR. PATIENT 1P ASSIST, FWW FOR LONGER DISTANCES. PATIENT RESTING COMFORTABLY IN ROOM. BED LOCKED IN LOWEST POSITION, CALL LIGHT WITHIN REACH.
--- NOTE | 2025-07-10 22:39 | NUR ---
[place] PUMP ALARMED FOR CLOG. J TUBE UNCLOGGED WITH WARM WATER 30ML FLUSH. TUBE FEED RESTARTED, CONTINUES TO RUN AT GOAL OF 70 ML/HR. PATIENT TOLERATED WELL.
[2025-07-11 00:22] LABS: Hematocrit 40.5 % (37.0-53.0); Hemoglobin 13.6 g/dL (13.5-17.5); Platelet Count 272 K/mm3 (150-400)
[2025-07-11] MEDS ORDERED: Dose Adjust by Pharmacy XX STA ×2 (01:58→08:54)
[2025-07-11 03:34] VITALS: BP 100/84
--- NOTE | 2025-07-11 06:14 | NUR ---
SHIFT SUMMARY SEE PREVIOUS NOTES. PATIENT REMAINS A/O X 4, USES CALL LIGHT APPROPRIATELY AND IS COOPERATIVE WITH CARE. SINUS RHYHTM 60-70s, BP STABLE. PATIENT SATS MAINTAINED >92% ON ROOM AIR WHILE AWAKE. PATIENT DESAT TO MID 80s WHILE SLEEPING, SATS >92% AFTER APPLYING 1L NC. ALL OTHER VSS. PATIENT RESTING COMFORTABLY IN ROOM. BED LOCKED IN LOWEST POSITION, CALL LIGHT WITHIN REACH.
[2025-07-11 07:53] VITALS: BP 115/84
--- NOTE | 2025-07-11 08:00 | NUR ---
AM SUMMARY PT ALERT, ORIENTED X4; [place]; COOPEATIVE WITH CARE. PT RESTING IN BED. UP WITH SBA TO BATHROOM. PT DENIES PAIN, CHEST PAIN/PRESSURE, SOB, NAUSEA, DIZZINESS AND NUMB/TINGLING. TELE SINUS BBB 70'S, BP WNL. EDEMA NOTED TO BLE TRACE TO UNDER SIDE OF CALF. SPO2 >90% ON RA WHILE AWAKE, NOTED PER REPORT PT ON 1-2L WHILE SLEEPING DUE TO DESATURATING; SPOUSE NOTED THIS AM THAT HE USED TO WEAR A CPAP FOR SLEEP APNEA. ABD FIRM, NONTENDER, HYPOACTIVE BT. OTHER VSS. CALL LIGHT WITHIN REACH. TUBE FEED AT GOAL. HEPARIN GTT PER ORDERS.
[2025-07-11] MEDS ORDERED: Lactobacil 2-S.Thermo-Bifido 1 1 Cap PT SCH (09:00)
--- NOTE | 2025-07-11 09:12 | NUR ---
consultation, recieved, reviewed, and processed. no polst or ad on file.
[2025-07-11] MEDS ORDERED: Acetaminophen650 M1 PO (10:57)
[2025-07-11] MEDS ORDERED: ELIQUIS5 M2 PO (11:00)
[2025-07-11 12:27] VITALS: BP 121/75
--- NOTE | 2025-07-11 12:28 | NUR ---
DISCHARGE SUMMARY PT STARTED COUGHING UP BROWNISH/DARK RED SPUTUM SMALL AMOUNT; NOTIFIED DR RABAGO, ORDERS TO CONTINUE WITH DISCHARGE. EDUCATED PT ON IF SYMPTOM WORSENS TO COME BACK TO ER. NO OTHER ACUTE CHANGES NOTED. VSS. PT AND SPOUSE EDUCATED ON DISCHARGE INTRUCTIONS. YANNI SAUSAGE MACHINE OPERATOR STOPPED BY TO EDUCATED PT AND FAMILY. PT LEFT VIA WHEELCHAIR AT 1231 WITH ALL BELONGINGS.
== END 2025-07-11 12:31 | disposition home or self-care (01) | DRG 175 ==
LOC: ER 00:56 → PCU 03:07 → ERHOLD 03:07 → PCU 04:40
PROVIDERS: Internal Medicine; Student in an Organized Health Care Education/Training Program; ADMIT Student in an Organized Health Care Education/Training Program
PROC: 5A09357 Assistance with Respiratory Ventilation, Less than 24 Consecutive Hours, Continuous Positive Airway Pressure (ICD-10-PCS; principal; 2025-07-09)
DX: I26.99 Other pulmonary embolism without acute cor pulmonale (principal); J96.01 Acute respiratory failure with hypoxia; C15.9 Malignant neoplasm of esophagus, unspecified; E87.1 Hypo-osmolality and hyponatremia; I82.411 Acute embolism and thrombosis of right femoral vein; E11.9 Type 2 diabetes mellitus without complications; I10 Essential (primary) hypertension; K21.9 Gastro-esophageal reflux disease without esophagitis; N40.0 Benign prostatic hyperplasia without lower urinary tract symptoms; Z90.49 Acquired absence of other specified parts of digestive tract; Z79.899 Other long term (current) drug therapy; Z93.1 Gastrostomy status
CPT/HCPCS: 36415; 71045; 71260; 80048; 80053; 82947; 83735; 84145; 85014; 85018; 85025; 85049; 85379; 85520; 85610; 85730; 87637; 93005; 93010; 93970; 94762; 99285-25; A9270; J0456; J0696; J1644; J1650; J7050; J7120; Q9967